=== PATIENT | female | born 1960 | race African-American/Black ===

== ENCOUNTER → 2016-06-14 | Outpatient (CLI) | payer OTHER ==
[~2016-06-14] MED LIST: ADVA100A INH; ADVA250A INH; ADVAI500I PO; ALBUS PO; ASPI325T PO; AZIT250T3 PO; AZIT500T2 PO; BENA25TA8 PO; DULE100A INH; OLAN15TA PO; OXCA300T PO; OXCA300T2 PO; PALI156P IM; ZYPR15TA PO
[2016-06-14 07:45] LABS: AUTOMATED NEUTROPHIL # 2.2 TH/MM3 (1.8-7.7); BASOPHIL # 0.1 TH/MM3 (0-0.2); BASOPHIL % 2.3 % (0.0-2.0); EOSINOPHIL # 0.1 TH/MM3 (0-0.4); EOSINOPHIL % 2.2 % (0.0-4.0); HEMATOCRIT 41.7 % (35.0-46.0); HEMO FLAGS DIFF FINAL; LYMPH % 39.2 % (9.0-44.0); LYMPHOCYTE # 1.7 TH/MM3 (1.0-4.8); MEAN CELL VOLUME 91.6 FL (80.0-100.0); MEAN CORPUSCULAR HEMOGLOBIN 31.3 PG (27.0-34.0); MEAN CORPUSCULAR HGB CONC 34.1 % (32.0-36.0); MONO % 5.4 % (0.0-8.0); NEUT % 50.9 % (16.0-70.0); PLATELET COUNT 203 TH/MM3 (150-450); RED BLOOD COUNT 4.55 MIL/MM3 (4.00-5.30); RED CELL DISTRIBUTION WIDTH 12.5 % (11.6-17.2); WHITE BLOOD COUNT 4.4 TH/MM3 (4.0-11.0)
[2016-06-14 08:16] LABS: ALKALINE PHOSPHATASE 91 U/L (45-117); ALT (GPT) 21 U/L (10-53); ANION GAP 5 MEQ/L (5-15); AST (GOT) 15 U/L (15-37); BICARBONATE 29.9 MEQ/L (21.0-32.0); BLOOD UREA NITROGEN 14 MG/DL (7-18); CHLORIDE 103 MEQ/L (98-107); GLOMERULAR FILTRATION RATE 72 ML/MIN (>89); GLUCOSE,FASTING 84 MG/DL (74-99); HDL CHOLESTEROL 108.6 MG/DL (40.0-60.0); LDL CHOLESTEROL 72 MG/DL (0-99); POTASSIUM 4.4 MEQ/L (3.5-5.1); SODIUM (NA) 138 MEQ/L (136-145); TOTAL BILIRUBIN ADULT 0.5 MG/DL (0.2-1.0)
== END ==
LOC: CLAB 07:26
PROVIDERS: ATTEND Family Medicine
DX: F31.81 Bipolar II disorder (principal); F10.10 Alcohol abuse, uncomplicated; F14.20 Cocaine dependence, uncomplicated; Z91.19 Patient's noncompliance with other medical treatment and regimen
CPT/HCPCS: 36415; 80053; 80061; 84443; 85025

== ENCOUNTER 2016-10-20 07:27 | Emergency (ER) | payer OTHER ==
[~2016-10-20] VITALS: Ht 175.3 cm; Wt 60.0 kg
[~2016-10-20 07:27] MED LIST changes: -ADVA100A INH; -ADVA250A INH; -ADVAI500I PO; -ALBUS PO; -ASPI325T PO; -AZIT250T3 PO; -AZIT500T2 PO; -BENA25TA8 PO; -DULE100A INH; -OLAN15TA PO; -OXCA300T PO; -OXCA300T2 PO; -ZYPR15TA PO
[2016-10-20 07:29] VITALS: BP 135/84; PULSE 104; RESP 20; TEMP 98.1; O2SAT 93
[2016-10-20] MEDS ORDERED: DULE100A INH (07:43)
--- NOTE | 2016-10-20 08:01 | PD ---
HPI Chief Complaint: Cold / Flu Symptoms Time Seen by Provider: 07:37 Travel History International Travel<30 days: No Contact w/Intl Traveler<30days: No Traveled to known affect area: No History of Present Illness HPI This is a 56 year old female with hx of asthma and 1/2 pack /day smoking who presents with shortness of breath, fever, body aches and productive cough. 4 days ago she started to have shortness of breath, worsening with fever, and productive cough, constant, moderate severity. She says other people in her household have been sick. She denies any chest pain. Pt. reports decreased appetite. Pt. has been using her inhaler with no relief of her symptoms. Pt has never been admitted to the hospital for her asthma. PFSH Past Medical History Arthritis: No Asthma: Yes Autoimmune Disease: No Blood Disorders: No Bipolar Disorder: Yes Anxiety: No Depression: Yes Heart Rhythm Problems: No Cancer: No Cardiovascular Problems: Yes (Hypertension) Chest Pain: No Congestive Heart Failure: No COPD: Yes Cerebrovascular Accident: No Coronary Artery Disease: Yes Diabetes: No Diminished Hearing: No Endocrine: No GERD: No Glaucoma: No Genitourinary: Yes (kindey infections) Headaches: No Hepatitis: No Hiatal Hernia: No Hypertension: Yes Immune Disorder: No Kidney Stones: No Musculoskeletal: No Neurologic: Yes Psychiatric: Yes (Schizoaffective Disorder) Reproductive: No Respiratory: Yes (COPD, asthma) Immunizations Current: No Migraines: Yes Renal Failure: Yes Schizophrenia: Yes Seizures: No Sleep Apnea: No Thyroid Disease: No Ulcer: No Tetanus Vaccination: Unknown Influenza Vaccination: No ?: Not Menopausal: No : 4 Para: 2 Miscarriage: 2 Past Surgical History Abdominal Surgery: Yes (hysterectomy) AICD: No Arteriovenous Shunt: No Cardiac Surgery: No Ear Surgery: No Endocrine Surgery: No Eye Surgery: No Genitourinary Surgery: Yes (bladder tuck) Gynecologic Surgery: Yes (hysterectomy) Hysterectomy: Yes Insulin Pump: No Joint Replacement: No Oral Surgery: No Pacemaker: No Thoracic Surgery: No Other Surgery: Yes (PILONDIAL CYST REMOVED L GLUTEAL REGION 2009) Social History Alcohol Use: No Tobacco Use: Yes Substance Use: No Allergies-Medications (Allergen,Severity, Reaction): Coded Allergies: Morphine (Verified Adverse Reaction, Intermediate, N/V, 07/24/16) Reported Meds & Prescriptions Reported Meds & Active Scripts Active Reported Dulera 120 Act Inh (Mometasone-Formoterol 120 Act Inh) 100-5 Mcg/Act Inh 2 Puff INH BID Review of Systems Except as stated in HPI: all other systems reviewed are Neg Physical Exam Narrative GENERAL:Well appearing, no acute distress SKIN: Focused skin assessment warm and dry. HEAD: Atraumatic. Normocephalic. EYES: Pupils equal and round. No injection or drainage. ENT: Moist mucous membranes. No posterior pharyngeal erythema or exudates. Tender to palpation over the maxillary sinuses. NECK: Trachea midline. No tender lymphadenopathy. CARDIOVASCULAR: Regular rate and rhythm. No murmur appreciated. RESPIRATORY: Clear to auscultation. Breath sounds equal bilaterally. GASTROINTESTINAL: Abdomen soft, non-tender, nondistended. MUSCULOSKELETAL: No obvious deformities. NEUROLOGICAL: Awake and alert. No obvious cranial nerve deficits. Moving all extremities. PSYCHIATRIC: Appropriate mood and affect; insight and judgment normal. Data Data Last Documented VS Vital Signs Date Time Temp Pulse Resp B/P Pulse Ox O2 Delivery O2 Flow Rate FiO2 10/20/16 07:38 16 96 Room Air 10/20/16 07:29 98.1 104 135/84 [facility] Medical Decision Making Medical Screen Exam Complete: Yes Emergency Medical Condition: Yes Interpretation(s) afebrile, mild tachycardia, mild hypoxia Differential Diagnosis Pneumonia, bronchitis, congestive heart failure Narrative Course This is a 56-year-old female who presents to the emergency department with a productive cough with purulent sputum as well as body aches and subjective fevers and chills. She denies IV drug use but does have a history of cocaine abuse. Patient has reassuring vital signs and on my exam is 96% on room air. I think she would benefit from antibiotic given her history of smoking and purulent sputum production. Patient will be discharged on azithromycin. I don' t think any further labs are warranted at this time. Diagnosis Primary Impression: Asthmatic bronchitis Patient Instructions: General Instructions Additional Instructions: If you develop severe shortness of breath, chest pain, or difficulty breathing return to the emergency department. Use albuterol every 4 hours for the next 2 days. Then use as needed for wheezing. Complete your course of antibiotics. Follow up with your primary care physician in 2-3 days if your symptoms have not improved. Med/Other Pt SpecificInfo: Prescription(s) given Scripts Azithromycin 250 Mg [id number] Mg PO DIRECTED #6 TAB Take 2 tabs (500 mg) on day 1 then 1 tab daily x 4 days. Prov:Amanda Escobar MD 10/20/16 Disposition: 01 DISCHARGE HOME Condition: Stable Amanda Escobar MD October 20, 2016 08:01
[2016-10-20] MEDS ORDERED: AZIT250T3 PO (08:10)
[2016-10-20 08:14] VITALS: BP 124/76
[2016-10-26] MEDS ORDERED: AZIT500T2 PO ×2 (09:02→09:05)
== END 2016-10-20 08:20 | disposition home or self-care (01) ==
LOC: NEPE 07:27
DX: J45.909 Unspecified asthma, uncomplicated (principal); F17.210 Nicotine dependence, cigarettes, uncomplicated; I10 Essential (primary) hypertension; J44.9 Chronic obstructive pulmonary disease, unspecified; I25.10 Atherosclerotic heart disease of native coronary artery without angina pectoris
CPT/HCPCS: 99283